=== PATIENT | male | born 1995 | race Two or more races ===

== ENCOUNTER 2022-06-19 13:43 | Emergency (ER) | payer OTHER ==
[~2022-06-19] VITALS: Ht 165.1 cm; Wt 76.0 kg
[2022-06-19 14:55] VITALS: BP 131/88
[2022-06-19] MEDS ORDERED: IBUPROFEN 800 MG TAB PO ONE (15:00)
[2022-06-19] MEDS ORDERED: IBUP800T27 PO (15:55)
== END 2022-06-19 18:27 | disposition home or self-care (01) ==
LOC: ER 13:43
DX: S20.221A Contusion of right back wall of thorax, initial encounter (principal); S40.011A Contusion of right shoulder, initial encounter; W22.8XXA Striking against or struck by other objects, initial encounter; Y93.89 Activity, other specified; Y92.89 Other specified places as the place of occurrence of the external cause; Y99.8 Other external cause status
CPT/HCPCS: 72070; 73010